=== PATIENT | male | born 1990 | race Caucasian/White ===

== ENCOUNTER 2022-11-09 23:10 | Emergency (ER) | payer OTHER ==
[~2022-11-09] VITALS: Ht 152.4 cm; Wt 72.6 kg
[~2022-11-09 23:10] MED LIST: ALLEGRA ALLERGY60 M2 PO; CLARITIN10 MG PO; FLONASE ALLERG9.9 ML NAS; MOTRIN800 MG PO; Motrin,Rufen800 MG PO; ZITHROMAX Z PA250 MG PO
[2022-11-09] MEDS ORDERED: IBU800 M2 PO (23:49)
[2022-11-09] MEDS ORDERED: CLINDAMYCIN HC300 MG PO (23:49)
== END 2022-11-10 00:28 | disposition home or self-care (01) ==
LOC: ED 23:10
DX: K08.89 Other specified disorders of teeth and supporting structures (principal); Z79.899 Other long term (current) drug therapy; Z98.890 Other specified postprocedural states

== ENCOUNTER 2024-03-03 21:45 | Emergency (ER) | payer OTHER ==
[~2024-03-03] VITALS: Ht 170.1 cm; Wt 72.6 kg
[~2024-03-03 21:45] MED LIST changes: +CLINDAMYCIN HC300 MG PO; +IBU800 M2 PO
[2024-03-03 22:23] LABS: BASO % 0.4 % (0.0-1.0); EOS # 0.1 10*3/uL (0.0-0.4); HEMATOCRIT 38.1 % (42.0-52.0); LYMPH # 1.9 10*3/uL (1.3-4.4); LYMPH % 20.7 % (27.0-41.0); MEAN CELL VOLUME 85.6 fl (80.0-94.0); MEAN CORPUSCULAR HGB 29.2 pg (27.0-31.0); MEAN CORPUSCULAR HGB CONC 34.1 g/dl (33.0-37.0); MEAN PLATELET VOLUME 8.9 fl (9.6-12.3); MONO # 0.6 10*3/uL (0.1-1.0); MONO % 6.2 % (3.0-9.0); NEUT # 6.6 10*3/uL (2.3-7.9); NEUT % 71.5 % (47.0-73.0); PLATELET COUNT AUTOMATED 252 10*3/uL (130-400); RED BLOOD COUNT 4.45 10*6/uL (4.50-5.90); RED CELL DISTRI WIDTH 13.1 % (0-14.5); WHITE BLOOD COUNT 9.2 10*3/uL (4.8-10.8)
[2024-03-03] MEDS ORDERED: Amoxicillin/Clavulanate Pota 875 MG TAB PO ONE (22:30)
[2024-03-03] MEDS ORDERED: AMOX-CLAV 875-1 EACH PO (22:30)
[2024-03-03 22:41] LABS: BUN 13 mg/dl (9-23); CHLORIDE 106 mmol/L (98-107); POTASSIUM 3.9 mmol/L (3.4-5.1)
== END 2024-03-03 22:33 | disposition home or self-care (01) ==
LOC: ED 21:45
PROVIDERS: Nurse Practitioner Family
DX: R59.9 Enlarged lymph nodes, unspecified (principal); Z98.890 Other specified postprocedural states; F17.200 Nicotine dependence, unspecified, uncomplicated